=== PATIENT | female | born 1980 | race Caucasian/White ===

== ENCOUNTER 2020-09-25 18:06 | Emergency (ER) | payer SELFPAY ==
[~2020-09-25] VITALS: Ht 157.5 cm; Wt 59.0 kg
[~2020-09-25 18:06] MED LIST: AMOXICILLIN500 MG OR; BENZOYL PER EX; CARAFATE1 GM/10 M1 OR; CELEXA20 M1 OR; CIPRO500 MG PO; CLARITIN10 MG OR; DICLOFENAC50 MG OR; FLEXERIL OR; HYDROCORT2.5 % EX; LORTAB 5 OR; LORTAB5; LORTAB5 OR; LORTAB5 PO; NAPROSYN500 MG OR; NAPROSYN500 MG PO; NAPROXEN EC500 MG; NAPROXEN EC500 MG OR; NO MEDS; ORTHO TRI-CY OR; PERCOCET 5/325M1 TAB OR; PREVACID30 M1 PO; ROBITUSSIN AC10 ML PO; TOBREX0.3 % OP; TRIAMCINOLON0.11 EX; ULTRAM50 MG OR; ULTRAM50 MG PO; XANAX0.25 MG OR; XANAX0.25 MG PO; ZOLOFT25 MG OR; ZYPREXA5 MG OR
[2020-09-25] MEDS ORDERED: ARTIFIC TEAR OU (18:58)
[2020-09-25 19:05] VITALS: BP 110/70
== END 2020-09-25 19:05 | disposition home or self-care (01) | DRG 125 ==
LOC: ED 18:06
DX: H57.11 Ocular pain, right eye (principal); H04.123 Dry eye syndrome of bilateral lacrimal glands; F17.210 Nicotine dependence, cigarettes, uncomplicated

== ENCOUNTER 2020-10-09 18:34 | Emergency (ER) | payer SELFPAY ==
[~2020-10-09 18:34] MED LIST changes: +ARTIFIC TEAR OU
[2020-10-09 20:02] VITALS: BP 138/84
== END 2020-10-09 20:02 | disposition home or self-care (01) | DRG 605 ==
LOC: ED 18:34
DX: S60.410A Abrasion of right index finger, initial encounter (principal); F17.210 Nicotine dependence, cigarettes, uncomplicated; W22.09XA Striking against other stationary object, initial encounter; Y93.89 Activity, other specified; Y92.009 Unspecified place in unspecified non-institutional (private) residence as the place of occurrence of the external cause